=== PATIENT | male | born 1945 | race Caucasian/White ===

== ENCOUNTER → 2017-04-05 | Outpatient (REF) | payer MEDICARE ==
[~2017-04-05] MED LIST: /WARF25TA OR; ACET65TA OR; ADVAIR DISKUS INH; CALCIUM PLUS VIT D PO; LISI5TAB OR; NASONEX; PERC5TAB8 OR; PERC7.5T8 OR; SIMV20TA2 OR; SING10TA31 OR; TRAMADOL PO; [UNRECOGNIZED DRUG - OTHER] PO
== END ==
LOC: M SFHCCLAY 16:23
PROVIDERS: ATTEND Family Medicine
DX: R31.9 Hematuria, unspecified (principal)

== ENCOUNTER → 2017-04-15 | Outpatient (CLI) | payer MEDICARE ==
[~2017-04-15] MED LIST changes: +ADV250INH INH; +ALBU17IN2 INH; +CALC600T57 PO; +CLAR10CA3 PO; +FLUT1SPR2; +LISI10TA4 PO; +MULT1TAB10 PO; +OCUVTAB PO; +SIMV20TA2 PO; +SING10TA32 PO; +STOO100C PO; +SUPE1TAB PO
[2017-04-15 18:34] LABS: ANION GAP 5 MEQ/L (8-16); BLOOD UREA NITROGEN 17 MG/DL (7-18); CALCIUM LEVEL 9.3 MG/DL (8.8-10.2); CARBON DIOXIDE LEVEL 30 MEQ/L (21-32); CHLORIDE LEVEL 100 MEQ/L (98-107); CREATININE FOR GFR 0.99 MG/DL (0.70-1.30); GLOMERULAR FILTRATION RATE > 60.0 (>42); GLUCOSE, FASTING 98 MG/DL (83-110); POTASSIUM SERUM 4.7 MEQ/L (3.5-5.1); SODIUM LEVEL 135 MEQ/L (136-145)
== END ==
LOC: M SMT 11:56
PROVIDERS: ATTEND Nurse Practitioner Family
DX: R31.9 Hematuria, unspecified (principal); Z12.5 Encounter for screening for malignant neoplasm of prostate
CPT/HCPCS: 36415; 80048; 88108; G0103; G0463

== ENCOUNTER → 2017-04-21 | Outpatient (CLI) | payer MEDICARE ==
[~2017-04-21] MED LIST changes: -ADV250INH INH; -ALBU17IN2 INH; -CALC600T57 PO; -CLAR10CA3 PO; -FLUT1SPR2; +ISOVUE-370 76% 100ML VIAL (Q9967) As Ordered ONE; -LISI10TA4 PO; -MULT1TAB10 PO; -OCUVTAB PO; -SIMV20TA2 PO; -SING10TA32 PO; -STOO100C PO; -SUPE1TAB PO
--- NOTE | 2017-04-21 19:16 | REP ---
CT abdomen pelvis triphasic scan: Scan is performed for diaphragms to the pubic symphysis, initially without IV contrast. After IV contrast. Biphasic scanning is performed. There is no bowel contrast. There are no comparisons. The visualized lung vásquez are unremarkable. The hepatic parenchyma is homogeneous except for a small hypodensity posteriorly in the right lobe of the liver identified on the portal venous enhancement phase measuring 1 cm in diameter. This is isointense on the other two phases. And cannot be further characterized by CT there are no comparison studies. MRI follow-up might be considered. There are multiple gallbladder calculi. The gallbladder is otherwise unremarkable. There is no biliary duct dilatation. The pancreas and spleen are normal size and unremarkable. The adrenals are unremarkable. There are no renal calculi. There is no hydronephrosis. There are no renal masses. There is a small cortical cyst at the lower pole right kidney and a small cortical cyst at the lower pole of the left kidney. There is no ureteral dilatation. There are no ureteral calculi. There are no bladder calculi. There is a focal bladder mass along the posterolateral bladder wall on the left on image 113 of series 301 measuring 2.1 cm in length by 0.7 cm in depth. There is a subtle filling defect in the bladder in this location on the equilibrium phase scan. The abdominal aorta is unremarkable. There is no bowel distension. There is a right lower quadrant colostomy. Pelvis: There is no adenopathy or ascites. Impression: There is a bladder mass along the posterolateral bladder wall on the left as described in the body of the report. There are no renal calculi or masses. There is no hydronephrosis. There is a small renal cyst on the right and a small renal cyst on the left. There is no adenopathy or ascites. There is a right lower quadrant colostomy. There is cholelithiasis. There is a 1 cm hypodensity posteriorly in the right lobe of the liver that cannot be further characterized by CT. MRI follow-up might be considered. This is identified on the portal venous phase only. It is isointense on the other phases. Signed by Jesus Linda MD 04/21/2017 07:08 P
== END ==
LOC: M RAD 17:45
PROVIDERS: ATTEND Nurse Practitioner Family
DX: R31.9 Hematuria, unspecified (principal)
CPT/HCPCS: 74178; Q9967

== ENCOUNTER → 2017-05-17 | Outpatient (REF) | payer MEDICARE ==
[~2017-05-17] MED LIST changes: +ADV250INH INH; +ALBU17IN2 INH; +CALC600T57 PO; +CLAR10CA3 PO; +FLUT1SPR2; -ISOVUE-370 76% 100ML VIAL (Q9967) As Ordered ONE; +LISI10TA4 PO; +MULT1TAB10 PO; +OCUVTAB PO; +SIMV20TA2 PO; +SING10TA32 PO; +STOO100C PO; +SUPE1TAB PO
== END ==
LOC: M LABSMT 12:45
PROVIDERS: ATTEND Urology
DX: Z01.818 Encounter for other preprocedural examination (principal); N39.0 Urinary tract infection, site not specified
CPT/HCPCS: 87086; 93005; G0463

== ENCOUNTER → 2017-05-23 | Day surgery (SDC) | payer MEDICARE ==
[~2017-05-23] VITALS: Ht 175.3 cm; Wt 78.0 kg
[~2017-05-23] MED LIST changes: +ALBUTEROL SULFATE 2.5 MG/0.5 ML INH NEB SOLN As Ordered ONE; +ALBUTEROL SULFATE 2.5 MG/0.5 ML INH NEB SOLN INH SCH; +CONRAY-60 60% 50ML VIAL (Q9961) As Ordered ONE; +ESMOLOL INJ 100MG/10ML VIAL As Ordered ONE; +GLYCOPYRROLATE INJ 0.2 MG/ML 2 ML VIAL As Ordered ONE; +KETOROLAC 30 MG/ML VIAL (J1885) IV ONE; +LIDOCAINE 2% INJ 100 MG/5 ML SDV (FOR ANES.) As Ordered ONE; +LR 1,000 ML IV SCH; +MIDAZOLAM INJ 2 MG/2 ML VIAL (J2250) As Ordered ONE; +NEOSTIGMINE 1MG/ML 5 ML SYRINGE (J2710) As Ordered ONE; +ONDANSETRON 4MG/2ML VIAL (J2405) As Ordered ONE; +ONDANSETRON 4MG/2ML VIAL (J2405) IV PRN; +PERCOCET 5MG/325MG TAB PO ONE; +PERCOCET 5MG/325MG TAB PO PRN; +PROPOFOL 200 MG/20 ML VIAL As Ordered ONE; +ROCURONIUM BROMIDE 50 MG/5 ML VIAL/SYRINGE As Ordered ONE; +dexameTHASONE 4 MG/ML 1ML VIAL (J1100) As Ordered ONE; +fentaNYL 100 MCG/2 ML INJECTION (J3010) As Ordered ONE; +fentaNYL 100 MCG/2 ML INJECTION (J3010) IV PRN; +oxyBUTYnin 5 MG TAB PO ONE
--- NOTE | 2017-05-23 11:33 | REP ---
Retrograde pyelogram: The procedures performed by the urologist, Dr. Sheldon. There are two intraoperative fluoroscopic views performed during placement of a left ureteral stent. The final view demonstrates the proximal distal pigtails in satisfactory locations. There are surgical clips in the pelvis from prior to the current to pyelogram. Fluoroscopic exposure time is 12 seconds. Fluoroscopic images are performed with last image hold technology. These images require no additional radiation. Signed by Jesus Linda MD 05/23/2017 11:25 A
[2017-05-23 17:30] VITALS: BP 130/72
--- NOTE | 2017-05-24 07:57 | RO ---
DATE OF PROCEDURE: 05/23/2017 PREPROCEDURE DIAGNOSIS: Bladder tumor. POSTPROCEDURE DIAGNOSIS: Bladder tumor. OPERATIVE PROCEDURE: Cystoscopy, transurethral resection of bladder tumor (between 2-5 cm), left retrograde pyelogram with intraoperative interpretation of images, left ureteral stent placement, urethral meatal dilation. SURGEON: Corey Sheldon MD OVEN STRIPPER: None. ANESTHESIA: General. OPERATIVE INDICATIONS: This is a 71-year-old male who was recently found bladder tumors on recent office cystoscopy. It was recommended he be brought to the operating room today for resection. DESCRIPTION OF PROCEDURE: The patient was brought to the operating room and general anesthesia was induced. Prophylactic antibiotics were infused. He was then placed in dorsal lithotomy position and prepped and draped in a usual sterile fashion. A rigid cystoscope was then inserted into the urethral meatus and advanced into the bladder. The bladder was then thoroughly examined and the only abnormality seen was a large papillary tumor just above the left ureteral orifice as well as a few smaller tumors adjacent to it. At this point, a resectoscope was utilized to resect all of the tumors visualized on the left trigone. I did make sure I resected deep enough to get the muscle layer to be sent for pathologic analysis. Once that was done, all of the tissue was removed from the bladder to be sent for pathologic analysis. Since I did resect on top of the ureteral orifice, I was concerned that it would potentially cause edema and obstruct the ureteral orifice, and therefore the decision was made to place a stent. At this point, an open ended ureteral catheter was advanced up the left collecting system and a retrograde pyelogram was performed. It was negative for hydronephrosis or extravasation. I then advanced a wire up the left collecting system and removed the ureteral catheter. At this point, I utilized a wire to advance a #6-Mosotho x 22-32 cm JJ ureteral stent up to the left collecting system. The wire was then removed and there were adequate curls to the stent in the left renal pelvis and bladder. Hemostasis obtained using coagulation current. At this point, the resectoscope was removed. Of note at the beginning of the procedure, I did have to dilate his ureteral meatus in order to get resectoscope in. This was dilated to #30-Mosotho. At the end of the procedure, an #18-Mosotho catheter was inserted into the bladder and the balloon was filled with 10 mL of sterile water. The catheter was then connected to gravity drainage. This marked the conclusion of the procedure. The patient was taken out of the dorsal lithotomy position, awakened from anesthesia, and transported to the recovery room in stable condition. ESTIMATED BLOOD LOSS: 5 mL. COMPLICATIONS: None. SPECIMENS: Bladder tumors. PLAN: The patient will followup in the clinic in a week for catheter removal and pathologic results. Will take stent out in 2-3 weeks. K[facility]
== END | disposition home or self-care (01) ==
LOC: M SDC 07:48
PROVIDERS: ATTEND Urology
DX: C67.8 Malignant neoplasm of overlapping sites of bladder (principal); I10 Essential (primary) hypertension; E78.5 Hyperlipidemia, unspecified; K21.9 Gastro-esophageal reflux disease without esophagitis; Z92.21 Personal history of antineoplastic chemotherapy; Z85.038 Personal history of other malignant neoplasm of large intestine; Z92.3 Personal history of irradiation; Z79.899 Other long term (current) drug therapy; Z79.51 Long term (current) use of inhaled steroids
CPT/HCPCS: 52235; 52332; 52341; 74420; 88307; C2617; J0690; J1100; J1885; J2250; J2405; J2710; J3010; Q9961

== ENCOUNTER → 2018-02-21 | Outpatient (REF) | payer MEDICARE | LOC: M SMT 16:53 | DX: C67.9 Malignant neoplasm of bladder, unspecified (principal) | CPT/HCPCS: 88108 ==

== ENCOUNTER → 2018-03-07 | Outpatient (REF) | payer MEDICARE ==
[2018-03-07 16:49] LABS: ALBUMIN 3.9 GM/DL (3.2-5.2); ALBUMIN/GLOBULIN RATIO 1.18 (1.00-1.93); ALKALINE PHOSPHATASE 67 U/L (45-117); ALT/SGPT 27 U/L (12-78); ANION GAP 6 MEQ/L (8-16); AST/SGOT 20 U/L (7-37); BILIRUBIN,TOTAL 0.6 MG/DL (0.2-1.0); BLOOD UREA NITROGEN 15 MG/DL (7-18); CALCIUM LEVEL 9.4 MG/DL (8.8-10.2); CARBON DIOXIDE LEVEL 29 MEQ/L (21-32); CHLORIDE LEVEL 103 MEQ/L (98-107); CHOLESTEROL LEVEL 175 MG/DL (<200); CREATININE FOR GFR 1.13 MG/DL (0.70-1.30); GLOMERULAR FILTRATION RATE > 60.0 (>42); GLUCOSE, FASTING 105 MG/DL (70-100); HDL CHOLESTEROL 54 MG/DL (>40); LDL CHOLESTEROL 82.2 MG/DL (<100); NON-HDL-C 121 MG/DL; POTASSIUM SERUM 4.6 MEQ/L (3.5-5.1); SODIUM LEVEL 138 MEQ/L (136-145); TOTAL PROTEIN 7.2 GM/DL (6.4-8.2); TRIGLYCERIDES LEVEL 194 MG/DL (<150)
== END ==
LOC: M SFHCCLAY 10:42
DX: I10 Essential (primary) hypertension (principal); E78.5 Hyperlipidemia, unspecified
CPT/HCPCS: 80053

== ENCOUNTER → 2018-07-12 | Outpatient (CLI) | payer MEDICARE | LOC: M SMT 15:14 | DX: J45.40 Moderate persistent asthma, uncomplicated (principal) | CPT/HCPCS: 71046 ==

== ENCOUNTER → 2018-08-15 | Outpatient (REF) | payer MEDICARE | LOC: M SMT 13:23 | DX: C67.9 Malignant neoplasm of bladder, unspecified (principal) | CPT/HCPCS: 88108 ==

== ENCOUNTER → 2019-03-12 | Outpatient (REF) | payer MEDICARE ==
[~2019-03-12] MED LIST changes: -/WARF25TA OR; -ALBUTEROL SULFATE 2.5 MG/0.5 ML INH NEB SOLN As Ordered ONE; -ALBUTEROL SULFATE 2.5 MG/0.5 ML INH NEB SOLN INH SCH; -CONRAY-60 60% 50ML VIAL (Q9961) As Ordered ONE; +COUM1TAB18 OR; -ESMOLOL INJ 100MG/10ML VIAL As Ordered ONE; -GLYCOPYRROLATE INJ 0.2 MG/ML 2 ML VIAL As Ordered ONE; -KETOROLAC 30 MG/ML VIAL (J1885) IV ONE; -LIDOCAINE 2% INJ 100 MG/5 ML SDV (FOR ANES.) As Ordered ONE; -LR 1,000 ML IV SCH; -MIDAZOLAM INJ 2 MG/2 ML VIAL (J2250) As Ordered ONE; -NEOSTIGMINE 1MG/ML 5 ML SYRINGE (J2710) As Ordered ONE; -ONDANSETRON 4MG/2ML VIAL (J2405) As Ordered ONE; -ONDANSETRON 4MG/2ML VIAL (J2405) IV PRN; -PERCOCET 5MG/325MG TAB PO ONE; -PERCOCET 5MG/325MG TAB PO PRN; -PROPOFOL 200 MG/20 ML VIAL As Ordered ONE; -ROCURONIUM BROMIDE 50 MG/5 ML VIAL/SYRINGE As Ordered ONE; -dexameTHASONE 4 MG/ML 1ML VIAL (J1100) As Ordered ONE; -fentaNYL 100 MCG/2 ML INJECTION (J3010) As Ordered ONE; -fentaNYL 100 MCG/2 ML INJECTION (J3010) IV PRN; -oxyBUTYnin 5 MG TAB PO ONE
[2019-03-12 16:57] LABS: ALBUMIN 3.8 GM/DL (3.2-5.2); ALT/SGPT 40 U/L (12-78); BILIRUBIN,TOTAL 0.4 MG/DL (0.2-1.0); BLOOD UREA NITROGEN 20 MG/DL (7-18); CALCIUM LEVEL 9.3 MG/DL (8.8-10.2); CARBON DIOXIDE LEVEL 28 MEQ/L (21-32); CHLORIDE LEVEL 104 MEQ/L (98-107); CHOLESTEROL LEVEL 191 MG/DL (<200); CHOLESTEROL RISK RATIO 3.979 (<5); CREATININE FOR GFR 1.02 MG/DL (0.70-1.30); GLOMERULAR FILTRATION RATE > 60.0 (>42); GLUCOSE, FASTING 103 MG/DL (70-100); HDL CHOLESTEROL 48 MG/DL (>40); LDL CHOLESTEROL 92 MG/DL (<100); NON-HDL-C 143 MG/DL; POTASSIUM SERUM 4.5 MEQ/L (3.5-5.1); SODIUM LEVEL 138 MEQ/L (136-145); TOTAL PROTEIN 6.8 GM/DL (6.4-8.2); TRIGLYCERIDES LEVEL 254 MG/DL (<150)
== END ==
LOC: M SFHCCLAY 11:25
PROVIDERS: ATTEND Family Medicine
DX: I10 Essential (primary) hypertension (principal)
CPT/HCPCS: 80053; 80061; G0463

== ENCOUNTER → 2019-03-30 | Outpatient (REF) | payer MEDICARE | LOC: M SMT 17:02 | PROVIDERS: ATTEND Urology | DX: C67.9 Malignant neoplasm of bladder, unspecified (principal) ==

== ENCOUNTER → 2020-04-23 | Outpatient (REF) | payer MEDICARE ==
[~2020-04-23] MED LIST changes: +MM S100C PO; -SIMV20TA2 PO; +SIMV20TA22 PO; -STOO100C PO
== END ==
LOC: M SMT 16:50
PROVIDERS: ATTEND Urology
DX: Z85.51 Personal history of malignant neoplasm of bladder (principal)

== ENCOUNTER → 2021-05-11 | Outpatient (REF) | payer MEDICARE ==
[~2021-05-11] MED LIST changes: +LISI10TA22 PO; -LISI10TA4 PO
== END ==
LOC: M SMT 18:10
PROVIDERS: ATTEND Urology
DX: Z85.51 Personal history of malignant neoplasm of bladder (principal)

== ENCOUNTER → 2023-03-29 | Outpatient (REF) | payer MEDICARE ==
[~2023-03-29] MED LIST changes: +MONT-5 PO; -SING10TA32 PO
[2023-03-29 17:41] LABS: HEMATOCRIT 38.6 % (42.0-52.0); MEAN CORPUSCULAR HEMOGLOBIN 34.2 pg (27.0-33.0); MEAN CORPUSCULAR HGB CONC 33.7 g/dl (32.0-36.5); MEAN CORPUSCULAR VOLUME 101.6 fl (80.0-96.0); PLATELET COUNT, AUTOMATED 174 10^3/uL (150-450); WHITE BLOOD COUNT 4.7 10^3/uL (4.0-10.0)
[2023-03-29 17:58] LABS: ALBUMIN 3.6 G/DL (3.2-5.2); ALKALINE PHOSPHATASE 50 U/L (46-116); ALT/SGPT 23 U/L (7.0-40); AST/SGOT 21 U/L (<34); BILIRUBIN,TOTAL 0.5 MG/DL (0.3-1.2); BLOOD UREA NITROGEN 11 MG/DL (9-23); CALCIUM LEVEL 8.9 MG/DL (8.3-10.6); CARBON DIOXIDE LEVEL 29 MMOL/L (20-31); CHLORIDE LEVEL 104 MMOL/L (98-107); CHOLESTEROL LEVEL 135 MG/DL (<200); CREATININE FOR GFR 0.98 MG/DL (0.70-1.30); GLOMERULAR FILTRATION RATE > 60.0 (>42); GLUCOSE, FASTING 98 MG/DL (74-106); HDL CHOLESTEROL 51.9 MG/DL (>40); LDL CHOLESTEROL 57.5 MG/DL (<100); NON-HDL-C 83.1 MG/DL; POTASSIUM SERUM 4.7 MMOL/L (3.5-5.1); SODIUM LEVEL 140 MMOL/L (136-145); TOTAL PROTEIN 6.1 G/DL (5.7-8.2); TRIGLYCERIDES LEVEL 128 MG/DL (<150)
== END ==
LOC: M SFHCCLAY 11:05
PROVIDERS: ATTEND Family Medicine
DX: I10 Essential (primary) hypertension (principal); E78.5 Hyperlipidemia, unspecified

== ENCOUNTER → 2023-05-09 | Outpatient (REF) | payer MEDICARE | LOC: M SMT 17:07 | PROVIDERS: ATTEND Urology | DX: C67.9 Malignant neoplasm of bladder, unspecified (principal) ==

== ENCOUNTER → 2024-04-05 | Outpatient (REF) | payer MEDICARE ==
[2024-04-05 18:46] LABS: HEMATOCRIT 37.6 % (42.0-52.0); HEMOGLOBIN 12.7 g/dl (13.5-17.5); MEAN CORPUSCULAR HEMOGLOBIN 34.3 pg (27.0-33.0); MEAN CORPUSCULAR HGB CONC 33.8 g/dl (32.0-36.5); MEAN CORPUSCULAR VOLUME 101.6 fl (80.0-96.0); PLATELET COUNT, AUTOMATED 167 10^3/uL (150-450); WHITE BLOOD COUNT 5.9 10^3/uL (4.0-10.0)
[2024-04-05 19:15] LABS: FOLATE > 24.00 NG/ML (>5.4)
[2024-04-05 19:16] LABS: VITAMIN B12 LEVEL 368 PG/ML (211-911)
[2024-04-05 19:19] LABS: ALBUMIN 3.4 G/DL (3.2-5.2); ALKALINE PHOSPHATASE 53 U/L (46-116); ALT/SGPT 19 U/L (7.0-40); AST/SGOT 12 U/L (<34); BILIRUBIN,TOTAL 0.5 MG/DL (0.3-1.2); BLOOD UREA NITROGEN 20 MG/DL (9-23); CALCIUM LEVEL 9.3 MG/DL (8.3-10.6); CARBON DIOXIDE LEVEL 30 MMOL/L (20-31); CHLORIDE LEVEL 105 MMOL/L (98-107); CHOLESTEROL LEVEL 146 MG/DL (<200); CHOLESTEROL RISK RATIO 2.97 (<5); CREATININE FOR GFR 1.05 MG/DL (0.70-1.30); GLOMERULAR FILTRATION RATE > 60.0 (>35); GLUCOSE, FASTING 99 MG/DL (74-106); HDL CHOLESTEROL 49.1 MG/DL (>40); IRON (FE) 74 UG/DL (65-175); LDL CHOLESTEROL 59.5 MG/DL (<100); NON-HDL-C 96.9 MG/DL; POTASSIUM SERUM 4.7 MMOL/L (3.5-5.1); SODIUM LEVEL 139 MMOL/L (136-145); TOTAL PROTEIN 6.1 G/DL (5.7-8.2); TRIGLYCERIDES LEVEL 187 MG/DL (<150)
== END ==
LOC: M SFHCCLAY 13:33
PROVIDERS: ATTEND Family Medicine
DX: D64.9 Anemia, unspecified (principal); I10 Essential (primary) hypertension; E78.5 Hyperlipidemia, unspecified

== ENCOUNTER → 2024-05-07 | Outpatient (REF) | payer MEDICARE | LOC: M SMT 13:20 | PROVIDERS: ATTEND Urology | DX: C67.9 Malignant neoplasm of bladder, unspecified (principal) ==

== ENCOUNTER → 2025-03-12 | Outpatient (REF) | payer MEDICARE ==
[~2025-03-12] MED LIST changes: -ADV250INH INH; +ADVA1AER9 INH
[2025-03-12 18:28] LABS: ALBUMIN 3.8 G/DL (3.2-5.2); BILIRUBIN,TOTAL 0.6 MG/DL (0.3-1.2); CALCIUM LEVEL 9.3 MG/DL (8.3-10.6); CHOLESTEROL RISK RATIO 3.07 (<5); CREATININE FOR GFR 0.9 MG/DL (0.70-1.30); GLOMERULAR FILTRATION RATE 85.8 (>35); LDL CHOLESTEROL 69.8 MG/DL (<100); POTASSIUM SERUM 4.5 MMOL/L (3.5-5.1); TOTAL PROTEIN 6.3 G/DL (5.7-8.2)
[2025-03-12 18:29] LABS: HEMATOCRIT 39.8 % (42.0-52.0); HEMOGLOBIN 13.2 g/dl (13.5-17.5); MEAN CORPUSCULAR HEMOGLOBIN 33.2 pg (27.0-33.0); MEAN CORPUSCULAR HGB CONC 33.2 g/dl (32.0-36.5); PLATELET COUNT, AUTOMATED 185 10^3/uL (150-450); RED BLOOD COUNT 3.98 10^6/uL (4.30-6.10); WHITE BLOOD COUNT 5.4 10^3/uL (4.0-10.0)
== END ==
LOC: M SFHCCLAY 10:49
PROVIDERS: ATTEND Family Medicine
DX: D64.9 Anemia, unspecified (principal); I10 Essential (primary) hypertension; E78.5 Hyperlipidemia, unspecified

== ENCOUNTER → 2025-05-06 | Outpatient (REF) | payer MEDICARE | LOC: M SMT 13:04 | PROVIDERS: ATTEND Urology | DX: C67.9 Malignant neoplasm of bladder, unspecified (principal) ==